=== PATIENT | male | born 1955 | race Caucasian/White ===

== ENCOUNTER → 2019-08-20 10:46 | Outpatient (CLI) | payer BC, SELFPAY ==
--- NOTE | ~2019-08-20 | CT_ITS ---
EXAMINATION: CT chest w con DATE: 08/20/2019 11:24 INDICATION: Pulmonary nodule TECHNIQUE: Transaxial computed tomographic images of the chest were obtained after the administration of 75 cc of Omnipaque 350 intravenous contrast. The dose-length product (DLP) was 495.87 mGy-cm. Ite rative reconstruction was used. COMPARISON: None FINDINGS: There is mild emphysema. There is a 1.3 x 1.5 cm nodule in the superior segment of the left lower lobe. No additional pulmonary nodules are identified. There is no pleural effusion or pneumoth orax. No pathologically enlarged thoracic lymph nodes are identified. The heart size is normal. The l ungs are free of acute opacities. There is mild thoracic spondylosis. IMPRESSION: 1. Left upper lobe nodule concerning for primary bronchogenic carcinoma. Comparison with any prior im aging would be recommended. Otherwise, recommend follow-up in three months, PET/CT, or tissue samplin g. 2. Mild emphysema. Reviewed, dictated and finalized at location A. IMPRESSION: 1. Left upper lobe nodule concerning for primary bronchogenic carcinoma. Compar lavell with any prior imaging would be recommended. Otherwise, recommend follow-u p in three months, PET/CT, or tissue sampling. 2. Mild emphysema.
[2019-08-20 11:07] LABS: Estimated Glomerular Filt Rate > 60
== END ==
PROVIDERS: PCP Internal Medicine; Visit Provider Internal Medicine
DX: R91.1 Solitary pulmonary nodule (principal); J43.9 Emphysema, unspecified
CPT/HCPCS: 36415; 71260; Q9967